=== PATIENT | male | born 1950 | race Caucasian/White ===

== ENCOUNTER 2021-06-13 16:58 | Emergency (ER) | payer OTHER ==
[~2021-06-13] VITALS: Ht 177.8 cm; Wt 86.2 kg
== END 2021-06-13 22:33 | disposition home or self-care (01) ==
LOC: ED 16:58
DX: M19.042 Primary osteoarthritis, left hand (principal)

== ENCOUNTER 2022-07-02 15:44 | Emergency (ER) | payer OTHER ==
[~2022-07-02] VITALS: Ht 177.8 cm; Wt 88.5 kg
[2022-07-02 18:33] LABS: BASO % 0.4 % (0.0-1.0); EOS # 0.1 10*3/uL (0.0-0.4); EOS % 0.7 % (1.0-4.0); HEMATOCRIT 41.8 % (42.0-52.0); LYMPH % 12.7 % (27.0-41.0); MEAN CELL VOLUME 89.5 fl (80.0-94.0); MEAN CORPUSCULAR HGB 30.8 pg (27.0-31.0); MEAN CORPUSCULAR HGB CONC 34.4 g/dl (33.0-37.0); MEAN PLATELET VOLUME 10.1 fl (9.6-12.3); MONO # 0.5 10*3/uL (0.1-1.0); MONO % 5.6 % (3.0-9.0); NEUT # 6.5 10*3/uL (2.3-7.9); NEUT % 80.2 % (47.0-73.0); PLATELET COUNT AUTOMATED 222 10*3/uL (130-400); RED BLOOD COUNT 4.67 10*6/uL (4.50-5.90); RED CELL DISTRI WIDTH 11.6 % (0-14.5)
[2022-07-02 19:10] LABS: ALKALINE PHOSPHATASE 150 U/L (45-117); BUN 13 mg/dl (7-24); CHLORIDE 103 mmol/L (98-107); CREATININE 1.08 mg/dL (0.70-1.30); SGOT/AST 17 IU/L (3-35); SGPT/ALT 26 U/L (12-78); SODIUM 138 mmol/L (136-145); TOTAL PROTEIN 6.8 gm/dL (6.4-8.2)
== END 2022-07-02 21:26 | disposition home or self-care (01) ==
LOC: ED 15:44
PROVIDERS: Nurse Practitioner Family
DX: B34.9 Viral infection, unspecified (principal); Z20.822 Contact with and (suspected) exposure to COVID-19; R05.9 Cough, unspecified